=== PATIENT | female | born 1985 | race Caucasian/White ===

== ENCOUNTER 2018-08-02 09:01 | Day surgery (SDC) | payer MEDICAID ==
[~2018-08-02] VITALS: Ht 175.3 cm; Wt 152.7 kg
--- NOTE | ~2018-08-02 | OP ---
PATIENT NAME: OVI TEJADA MEDICAL RECORD: [id number] :85 LOCATION:[facility] ADMISSION DATE: SURGEON: TAYE MCKEON DO DATE OF OPERATION: 08/02/2018 PROCEDURE: EGD with biopsies. INDICATIONS FOR PROCEDURE: GERD, epigastric abdominal pain, nausea and vomiting. SCOPE: Olympus video gastroscope. MEDICATIONS: Propofol 280 mg IV per anesthesia. ESTIMATED BLOOD LOSS: Minimal. COMPLICATIONS: None. FINDINGS: Informed consent was given. The patient was made comfortable with the above medication. After reaching an adequate level of sedation by slow IV push, the patient was placed on her left side. The endoscope was advanced under direct visualization through the mouth to the second portion of the duodenum. The procedure itself was abbreviated due to decreased oxygenation and hypoxemia on the pulse oximetry. From what could be visualized, there was a normal upper, middle, and lower thirds of the esophagus. There were some minor reflux changes consistent with LA class B reflux-induced esophagitis at the GE junction. The endoscope was advanced beyond the GE junction into the stomach and retroflexed to view the cardia, which appeared normal. The fundus, body of the stomach, antrum, and prepyloric regions all appeared normal. The endoscope was advanced beyond the pylorus into the duodenum. The duodenum appeared normal down to the second portion. Random cold forceps biopsies were taken from the small bowel. At this point in the examination, the patient's oxygen levels were too low to safely continue with the procedure, so the endoscope was withdrawn from the patient. Biopsies were not taken from the stomach. The patient was given supplemental oxygen with a mask at this point and quickly recovered her oxygen saturation. A reattempt was not made endoscopically due to her poor tolerance with anesthesia. FINDINGS: 1. LA class B reflux-induced esophagitis. 2. Otherwise, normal endoscopy. PLAN AND RECOMMENDATIONS: 1. Discharge home when recovery parameters are met. 2. Continue current diet. 3. Continue current medications. 4. Increase pantoprazole to 40 mg daily for 30 days to see if this changes symptoms. 5. Recommend further imaging of gallbladder. This can be a right upper quadrant ultrasound, which may be difficult due to the patient's body habitus. Further imaging with an MRI or CT scan can also be considered if the right upper quadrant ultrasound is not adequate. 6. Consider PIPIDA scan pending results of ultrasound. 7. Consider H. pylori antibody testing. OPERATIVE REPORT [id number] TERRELLOVI TRANSINT:[id number] Voice Confirmation ID: [id number] DOCUMENT ID: [id number] TAYE MCKEON DO at 1300 CC: [id number] DICTATION DATE: 08/02/18 1140 [employer] INS[employer]ANCE: 08/02/18 1150 [facility] 08/02/18 [facility] [address] [place] [address]
[2018-08-02 09:26] LABS: HEMOGLOBIN 12.8 g/dL (12-16); MCH 25.1 pg (26.0-34.0); MCV 78.4 fL (80.0-100.0); MEAN PLATELET VOLUME 9.2 fL (7.4-10.4); RBC 5.1 10x6/uL (4.00-5.40); RDW 16.1 % (11.5-14.5); WBC 12.3 10x3/uL (4.8-10.8)
[2018-08-02 09:44] LABS: CALC OSMOLALITY 276 mosm/kg (275-300); CALCIUM 9.1 mg/dL (8.5-10.1); CARBON DIOXIDE 31.9 mmol/L (21.0-32.0); CHLORIDE - SERUM 101 mmol/L (98-107); CREATININE - SERUM 0.7 mg/dL (0.6-1.3); GLUCOSE 144 mg/dL (74-106); POTASSIUM - SERUM 3.7 mmol/L (3.5-5.1); SODIUM 138 mmol/L (136-145); UREA NITROGEN 8 mg/dL (7-18); eGFR NON AFRICAN AMERICAN > 90 mL/min (90-120)
[2018-08-02 09:46] LABS: HCG SERUM NEGATIVE (NEGATIVE)
[2018-08-02] MEDS ORDERED: LOTENSIN HCT 21 EAC1 PO (10:08)
[2018-08-02] MEDS ORDERED: PROTONIX20 MG PO (10:08)
[2018-08-02] MEDS ORDERED: NEURONTIN600 MG PO (10:09)
[2018-08-02] MEDS ORDERED: ARISTOCORT 0.5%15 GM TOPICAL (10:09)
[2018-08-02] MEDS ORDERED: ATARAX 25 MG TA25 MG PO (10:09)
[2018-08-02] MEDS ORDERED: GLUCOPHAGE1000 MG PO (10:10)
[2018-08-02 10:24] VITALS: BP 145/103; Ht 175.3 cm; Wt 152.7 kg
[2018-08-02 10:40] LABS: HCG URINE NEGATIVE (NEGATIVE)
[2018-08-02] MEDS ORDERED: PROTONIX40 MG PO (13:00)
[2018-08-02] MEDS ORDERED: REGLAN5 MG PO (13:01)
== END 2018-08-02 13:10 | disposition home or self-care (01) ==
LOC: D.OPS 09:01
PROVIDERS: Anesthesiology; Internal Medicine Gastroenterology
DX: K21.0 Gastro-esophageal reflux disease with esophagitis (principal)

== ENCOUNTER → 2018-08-06 08:45 | Outpatient (CLI) | payer MEDICAID ==
[2018-08-02 10:24] VITALS: BMI 49.7
[~2018-08-06 08:45] MED LIST: ARISTOCORT 0.5%15 GM TOPICAL; ATARAX 25 MG TA25 MG PO; GLUCOPHAGE1000 MG PO; LOTENSIN HCT 21 EAC1 PO; NEURONTIN600 MG PO; PROTONIX20 MG PO; PROTONIX40 MG PO; REGLAN5 MG PO; VENTOLIN HFA18 GM INH
== END | disposition home or self-care (01) ==
LOC: D.CT 08:45
DX: R10.9 Unspecified abdominal pain (principal); R11.2 Nausea with vomiting, unspecified

== ENCOUNTER 2018-09-06 09:00 | Day surgery (SDC) | payer MEDICAID ==
[~2018-09-06] VITALS: Ht 175.3 cm; Wt 107.0 kg
[2018-09-06 08:56] LABS: HEMATOCRIT 38.9 % (36.0-48.0); HEMOGLOBIN 12.1 g/dL (12-16); MCH 25.4 pg (26.0-34.0); MCHC 31.1 g/dL (31.0-37.0); MCV 81.6 fL (80.0-100.0); MEAN PLATELET VOLUME 9.4 fL (7.4-10.4); RBC 4.77 10x6/uL (4.00-5.40); RDW 15.3 % (11.5-14.5)
[~2018-09-06 09:00] MED LIST changes: -VENTOLIN HFA18 GM INH
[2018-09-06 09:03] LABS: CALC OSMOLALITY 275 mosm/kg (275-300); CALCIUM 9.1 mg/dL (8.5-10.1); CARBON DIOXIDE 34.2 mmol/L (21.0-32.0); CHLORIDE - SERUM 98 mmol/L (98-107); CREATININE - SERUM 0.6 mg/dL (0.6-1.3); GLUCOSE 125 mg/dL (74-106); POTASSIUM - SERUM 3.9 mmol/L (3.5-5.1); SODIUM 138 mmol/L (136-145); UREA NITROGEN 10 mg/dL (7-18); eGFR NON AFRICAN AMERICAN > 90 mL/min (90-120)
[2018-09-06 09:10] LABS: HCG SERUM NEGATIVE (NEGATIVE)
[2018-09-06] MEDS ORDERED: VENTOLIN HFA18 GM INH (09:57)
[2018-09-06 10:04] VITALS: BP 129/64; Ht 175.3 cm; Wt 107.0 kg
[2018-09-06 12:31] LABS: HCG URINE NEGATIVE (NEGATIVE)
== END 2018-09-06 12:40 | disposition home or self-care (01) ==
LOC: D.OPS 09:00
PROVIDERS: Anesthesiology; Internal Medicine Gastroenterology
DX: K64.0 First degree hemorrhoids (principal); K52.9 Noninfective gastroenteritis and colitis, unspecified; Z01.812 Encounter for preprocedural laboratory examination

== ENCOUNTER → 2018-09-23 08:41 | Outpatient (CLI) | payer MEDICAID ==
[2018-09-06 10:04] VITALS: BMI 34.9
[~2018-09-23 08:41] MED LIST changes: +VENTOLIN HFA18 GM INH
== END | disposition home or self-care (01) ==
LOC: D.US 08:41
DX: R10.13 Epigastric pain (principal); R11.2 Nausea with vomiting, unspecified

== ENCOUNTER → 2018-10-06 08:24 | Outpatient (CLI) | payer MEDICAID ==
[2018-09-06 10:04] VITALS: BMI 34.9
== END | disposition home or self-care (01) ==
LOC: D.NM 08:24
DX: R10.13 Epigastric pain (principal); R19.7 Diarrhea, unspecified